=== PATIENT | female | born 1990 | race Caucasian/White ===

== ENCOUNTER 2019-04-08 16:25 | Emergency (ER) | payer OTHER ==
--- NOTE | 2019-04-08 19:40 | ED ---
Abdominal Pain HPI - General Chief Complaint: Abdominal Pain Stated Complaint: /cramping Time Seen by Provider: 04/08/19 19:06 Source: patient Mode of arrival: ambulatory Limitations: no limitations - History of Present Illness Initial Comments: Patient is a 28-year-old female presenting to emergency Department with complaints of abdominal cramping for the last 2 days. Patient is approximate 5 weeks and did call her DIRECTOR OF OCCUPATIONAL HEALTH, Dr. Peña today who recommended she come to the ER for evaluation. Patient denies any vaginal bleeding. This is her first . She denies any nausea, vomiting, fevers. She has no other complaints at this time. She has no other pertinent past medical history. Upon arrival to the ER vitals are stable. - Related Data Home Medications Medication Instructions Recorded Confirmed Cholecalciferol [Vitamin D3 (25 5,000 unit PO DAILY 04/08/19 04/08/19 Mcg = 1000 Iu)] Zpi-Hahl-[id number] Acid 1 cap PO DAILY 04/08/19 04/08/19 [-U Capsule (formulary)] Previous Rx's Medication Instructions Recorded Cephalexin [Keflex] 500 mg PO BID 5 Days #10 cap 04/08/19 Allergies Allergy/AdvReac Type Severity Reaction Status Date / Time No Known Allergies Allergy Verified 04/08/19 20:41 Review of Systems ROS Statement: Those systems with pertinent positive or pertinent negative responses have been documented in the HPI. ROS Other: All systems not noted in ROS Statement are negative. Past Medical History Past Medical History: CVA/TIA Additional Past Medical History / Comment(s): cva 2009 History of Any Multi-Drug Resistant Organisms: None Reported Past Surgical History: Adenoidectomy, Tonsillectomy Past Psychological History: No Psychological Hx Reported Smoking Status: Never smoker Past Alcohol Use History: None Reported Past Drug Use History: None Reported General Exam - General Exam Comments Initial Comments: GENERAL: Well-appearing, well-nourished and in no acute distress. HEAD: Atraumatic, normocephalic. EYES: Pupils equal round and reactive to light, extraocular movements intact, sclera anicteric, conjunctiva are normal. ENT: TMs normal, nares patent, oropharynx clear without exudates. Moist mucous membranes. NECK: Normal range of motion, supple without lymphadenopathy or JVD. LUNGS: Breath sounds clear to auscultation bilaterally and equal. No wheezes rales or rhonchi. HEART: Regular rate and rhythm without murmurs, rubs or gallops. ABDOMEN: Soft, nontender, normoactive bowel sounds. No guarding, no rebound. No masses appreciated. EXTREMITIES: Normal range of motion, no pitting or edema. No clubbing or cyanosis. NEUROLOGICAL: Normal speech, normal gait. PSYCH: Normal mood, normal affect. SKIN: Warm, Dry, normal turgor, no rashes or lesions noted. Limitations: no limitations External exam: Present: normal external exam Speculum exam: Present: normal speculum exam. Absent: cervical discharge, vaginal bleeding, foreign body By manual exam: Present: normal by manual exam Course Vital Signs 04/08/19 04/08/19 16:36 22:05 Temperature 98.3 F 97.7 F Pulse Rate 74 90 Respiratory 19 18 Rate Blood Pressure 136/74 124/70 O2 Sat by Pulse 100 100 Oximetry Medical Decision Making - Medical Decision Making Patient is a 28-year-old female here for abdominal cramping 2 days. She is proximal to 5 weeks , first . No vaginal bleeding. Patient's exam is unremarkable. Vaginal exam is normal. Ultrasound reveals evidence of small intrauterine gestational sac. Recommend follow-up in 2 weeks to confirm a living fetus. No evidence for ectopic . Labs showed no acute abnormalities. HCG Quant is almost 6000. Urine does show moderate amount of bacteria. Patient denies any urinary type symptoms. Patient will be placed on Keflex for asymptomatic bacteremia. She is in agreement with this plan of care. Patient will follow up with her DIRECTOR OF OCCUPATIONAL HEALTH, Dr. Peña. She is stable for discharge at this time. Return parameters were discussed with the patient she verbalized understanding. - Lab Data Result diagrams: 04/08/19 20:20 04/08/19 20:20 Lab Results 04/08/19 04/08/19 04/08/19 Range/Units 20:20 20:20 20:20 WBC 14.4 H (3.8-10.6) k/uL RBC 4.26 (3.80-5.40) m/uL Hgb 13.4 (11.4-16.0) gm/dL Hct 40.4 (34.0-46.0) % MCV 94.9 (80.0-100.0) fL MCH 31.5 (25.0-35.0) pg MCHC 33.2 (31.0-37.0) g/dL RDW 12.3 (11.5-15.5) % Plt Count 190 (150-450) k/uL Neutrophils % 59 % Lymphocytes % 31 % Monocytes % 5 % Eosinophils % 2 % Basophils % 1 % Neutrophils # 8.6 H (1.3-7.7) k/uL Lymphocytes # 4.5 (1.0-4.8) k/uL Monocytes # 0.7 (0-1.0) k/uL Eosinophils # 0.3 (0-0.7) k/uL Basophils # 0.1 (0-0.2) k/uL Sodium (137-145) mmol/L Potassium (3.5-5.1) mmol/L Chloride (98-107) mmol/L Carbon Dioxide (22-30) mmol/L Anion Gap mmol/L BUN (7-17) mg/dL Creatinine (0.52-1.04) mg/dL Est GFR (CKD-EPI)AfAm (>60 ml/min/1.73 sqM) Est GFR (CKD-EPI)NonAf (>60 ml/min/1.73 sqM) Glucose (74-99) mg/dL Calcium (8.4-10.2) mg/dL Total Bilirubin (0.2-1.3) mg/dL AST (14-36) U/L ALT (4-34) U/L Alkaline Phosphatase (38-126) U/L Total Protein (6.3-8.2) g/dL Albumin (3.5-5.0) g/dL HCG, Quant mIU/mL Urine Color Yellow Urine Appearance Cloudy H (Clear) Urine pH 5.5 (5.0-8.0) Ur Specific [place] 1.030 (1.001-1.035) Urine Protein Trace H (Negative) Urine Glucose (UA) Negative (Negative) Urine Ketones Negative (Negative) Urine Blood Negative (Negative) Urine Nitrite Negative (Negative) Urine Bilirubin Negative (Negative) Urine Urobilinogen <2.0 (<2.0) mg/dL Ur Leukocyte Esterase Negative (Negative) Urine RBC 4 (0-5) /hpf Urine WBC 3 (0-5) /hpf Ur Squamous Epith Cells 2 (0-4) /hpf Calcium Oxalate Crystal Rare H (None) /hpf Urine Bacteria Moderate H (None) /hpf Urine Mucus Few H (None) /hpf Blood Type AB Positive Blood Type Recheck AB Pos Bld Type Recheck Status No 04/08/19 Range/Units 20:20 WBC (3.8-10.6) k/uL RBC (3.80-5.40) m/uL Hgb (11.4-16.0) gm/dL Hct (34.0-46.0) % MCV (80.0-100.0) fL MCH (25.0-35.0) pg MCHC (31.0-37.0) g/dL RDW (11.5-15.5) % Plt Count (150-450) k/uL Neutrophils % % Lymphocytes % % Monocytes % % Eosinophils % % Basophils % % Neutrophils # (1.3-7.7) k/uL Lymphocytes # (1.0-4.8) k/uL Monocytes # (0-1.0) k/uL Eosinophils # (0-0.7) k/uL Basophils # (0-0.2) k/uL Sodium 137 (137-145) mmol/L Potassium 4.0 (3.5-5.1) mmol/L Chloride 106 (98-107) mmol/L Carbon Dioxide 21 L (22-30) mmol/L Anion Gap 10 mmol/L BUN 12 (7-17) mg/dL Creatinine 0.54 (0.52-1.04) mg/dL Est GFR (CKD-EPI)AfAm >90 (>60 ml/min/1.73 sqM) Est GFR (CKD-EPI)NonAf >90 (>60 ml/min/1.73 sqM) Glucose 94 (74-99) mg/dL Calcium 9.2 (8.4-10.2) mg/dL Total Bilirubin 0.6 (0.2-1.3) mg/dL AST 25 (14-36) U/L ALT 16 (4-34) U/L Alkaline Phosphatase 48 (38-126) U/L Total Protein 7.3 (6.3-8.2) g/dL Albumin 4.5 (3.5-5.0) g/dL HCG, Quant 5956.7 mIU/mL Urine Color Urine Appearance (Clear) Urine pH (5.0-8.0) Ur Specific [place] (1.001-1.035) Urine Protein (Negative) Urine Glucose (UA) (Negative) Urine Ketones (Negative) Urine Blood (Negative) Urine Nitrite (Negative) Urine Bilirubin (Negative) Urine Urobilinogen (<2.0) mg/dL Ur Leukocyte Esterase (Negative) Urine RBC (0-5) /hpf Urine WBC (0-5) /hpf Ur Squamous Epith Cells (0-4) /hpf Calcium Oxalate Crystal (None) /hpf Urine Bacteria (None) /hpf Urine Mucus (None) /hpf Blood Type Blood Type Recheck Bld Type Recheck Status Disposition Clinical Impression: Abdominal cramping, bilateral lower quadrant, Disposition: HOME SELF-CARE Condition: Stable Instructions (If sedation given, give patient instructions): Abdominal Pain in (ED) Additional Instructions: Please return to the Emergency Department if symptoms worsen or any other concerns. Follow-up with Dr. Peña. Take antibiotic as prescribed. Prescriptions: Cephalexin [Keflex] 500 mg PO BID 5 Days #10 cap Is patient prescribed a controlled substance at d/c from ED?: No Referrals: Ashu Broussard MD [Primary Care Provider] - 1-2 days Irene Peña DO [Doctor of Osteopathic Medicine] - 1-2 days
[2019-04-08 20:39] LABS: Basophils # (A) 0.1 k/uL (0-0.2); Basophils % (A) 1 %; Eosinophils # (A) 0.3 k/uL (0-0.7); Eosinophils % (A) 2 %; HCT 40.4 % (34.0-46.0); HGB 13.4 gm/dL (11.4-16.0); Lymphocytes # (A) 4.5 k/uL (1.0-4.8); Lymphocytes % (A) 31 %; MCH 31.5 pg (25.0-35.0); MCHC 33.2 g/dL (31.0-37.0); MCV 94.9 fL (80.0-100.0); Mean Platelet Volume 9.2; Monocytes # (A) 0.7 k/uL (0-1.0); Monocytes % (A) 5 %; Neutrophils # (A) 8.6 k/uL (1.3-7.7); Neutrophils % (A) 59 %; Platelet Count 190 k/uL (150-450); RBC 4.26 m/uL (3.80-5.40); RDW 12.3 % (11.5-15.5); WBC 14.4 k/uL (3.8-10.6)
[2019-04-08 20:49] LABS: ALT 16 U/L (4-34); AST 25 U/L (14-36); African American GFR (CKD) >90 (>60 ml/min/1.73 sqM); Albumin 4.5 g/dL (3.5-5.0); Alkaline Phosphatase 48 U/L (38-126); Anion Gap 10 mmol/L; Blood Urea Nitrogen 12 mg/dL (7-17); Calcium 9.2 mg/dL (8.4-10.2); Carbon Dioxide 21 mmol/L (22-30); Chloride 106 mmol/L (98-107); Glucose 94 mg/dL (74-99); Non-African American GFR(CKD) >90 (>60 ml/min/1.73 sqM); Sodium 137 mmol/L (137-145); Total Bilirubin 0.6 mg/dL (0.2-1.3); Total Protein 7.3 g/dL (6.3-8.2)
[2019-04-08 20:54] LABS: Appearance,Urine Cloudy (Clear); Bacteria,Urine Moderate /hpf; Bilirubin,Urine Negative (Negative); Blood,Urine Negative (Negative); Calcium Oxalate Crystals,Urine Rare /hpf; Color,Urine Yellow; Glucose,Urine (UA) Negative (Negative); Ketones,Urine Negative (Negative); Leukocyte Esterase,Urine Negative (Negative); Mucus,Urine Few /hpf; Nitrite,Urine Negative (Negative); PH, Urine 5.5 (5.0-8.0); Protein,Urine Trace (Negative); RBC,Urine 4 /hpf (0-5); Squamous Epithelial Cell,Urine 2 /hpf (0-4); Urobilinogen,Urine <2.0 mg/dL (<2.0); WBC,Urine 3 /hpf (0-5)
[2019-04-08 21:06] LABS: HCG,Quantitative Serum 5956.7 mIU/mL
--- NOTE | 2019-04-08 21:42 | US ---
EXAMINATION TYPE: Transabdominal DATE OF EXAM: 04/08/2019 9:22 PM COMPARISON: US 2009 CLINICAL HISTORY: cramping. Cramping x 3 days. Hx ovarian cysts. . EXAM PERFORMED: Transvaginal (TV) and Transabdominal (TA) EXAM MEASUREMENTS: GESTATIONAL AGE / DATING Physician Established: Not yet established. Dates by LMP: (4 weeks/4 days) EDC: 12/12/2019 Dates by First Scan: This is first scan Dates by Current Scan for: Possible gestational sac seen only, measures out of range. MATERNAL ANATOMY Uterus: 8.2 x 5.8 x 4.8 cm. Retroverted. Complex area seen in cervix: 0.6 x 0.7 x 0.4 cm. Right Ovary: 3.3 x 2.4 x 1.8 cm. Appears to be posterior to the uterus. Left Ovary: 4.8 x 2.9 x 2.2 cm. Measures enlarged. Anechoic area seen: 2.2 x 2.8 x 1.4 cm. Complex ar ea seen: 1.6 x 2.1 x 1.1 cm. Post CDS / Adnexa: Appear to be wnl. Presence of free fluid: Not seen. Presence of corpus luteal cyst: Complex area seen left ovary as mentioned above: 1.6 x 2.1 x 1.1 cm. Presence of subchorionic bleed: Slightly hypoechoic area seen Inferior to the gestational sac: 1.2 x 1.4 x 1.0 cm. GESTATION / SURVEY MSD: 0.92 cm. (Measures OOR. IUP: Possible gestational sac seen at this time. Date of LMP: 03/07/2019 Beta HcG (if available): Not available. IMPRESSION: There is evidence of small intrauterine gestational sac. Follow-up recommended in 14 days to confirm a living fetus. I do not see evidence for ectopic .
[2019-04-08 22:17] VITALS: BP 124/70; PULSE 90; RESP 18; TEMP 97.7
== END 2019-04-08 22:05 | disposition home or self-care (01) ==
LOC: EC 16:25
DX: O99.89 Other specified diseases and conditions complicating pregnancy, childbirth and the puerperium (principal); R10.31 Right lower quadrant pain; R10.32 Left lower quadrant pain; Z86.73 Personal history of transient ischemic attack (TIA), and cerebral infarction without residual deficits; Z3A.01 Less than 8 weeks gestation of pregnancy
CPT/HCPCS: 36415; 76801; 76817; 80053; 81001; 84702; 85025; 86900; 86901; 99284

== ENCOUNTER → 2019-07-18 | Outpatient (CLI) | payer OTHER ==
--- NOTE | 2019-07-19 07:26 | ECHOF ---
Referral Reason:CVA MEASUREMENTS -------- HEIGHT: 165.1 cm WEIGHT: 78.5 kg BP: RVIDd: 3.4 cm (< 3.3) IVSd: 1.0 cm (0.6 - 1.1) LVIDd: 4.2 cm (3.9 - 5.3) LVPWd: 1.1 cm (0.6 - 1.1) IVSs: 1.6 cm LVIDs: 2.7 cm LVPWs: 1.7 cm LAESV Index (A-L): 35.39 ml/m Ao Diam: 2.9 cm (2.0 - 3.7) AV Cusp: 1.7 cm (1.5 - 2.6) LA Diam: 2.5 cm (2.7 - 3.8) MV EXCURSION: 27.939 mm (> 18.000) MV EF SLOPE: 111 mm/s (70 - 150) EPSS: 0.6 cm MV E Shailesh: 1.15 m/s MV DecT: 268 ms MV A Shailesh: 0.50 m/s MV E/A Ratio: 2.28 RAP: 5.00 mmHg RVSP: 34.42 mmHg FINDINGS -------- Sinus rhythm. This was a technically adequate study. The left ventricular size is normal. Left ventricular wall thickness is normal. There is normal g lobal left ventricular contractility. Overall left ventricular systolic function is normal with, an EF between 55 - 60 %. The diastolic filling pattern is normal for the age of the patient 9.23. The right ventricle is mildly enlarged. LA is moderately dilated 34-39 ml/m2 The right atrial size is normal. Interatrial and interventricular septum intact. The aortic valve is trileaflet and appears structurally normal. There is no evidence of aortic regu rgitation. There is no evidence of aortic stenosis. Mild mitral regurgitation is present. Mild tricuspid regurgitation present. There is borderline pulmonary hypertension. The right ventr icular systolic pressure, as measured by Doppler, is 34.42mmHg. There is no pulmonic regurgitation present. The aortic root size is normal. Normal inferior vena cava with normal inspiratory collapse consistent with estimated right atrial pre ssure of 5 mmHg. There is no pericardial effusion. CONCLUSIONS -------- 1. Sinus rhythm. 2. This was a technically adequate study. 3. The left ventricular size is normal. 4. Left ventricular wall thickness is normal. 5. There is normal global left ventricular contractility. 6. Overall left ventricular systolic function is normal with, an EF between 55 - 60 %. 7. The diastolic filling pattern is normal for the age of the patient 9.23 8. The right ventricle is mildly enlarged. 9. LA is moderately dilated 34-39 ml/m2 10. The right atrial size is normal. 11. Interatrial and interventricular septum intact. 12. The aortic valve is trileaflet and appears structurally normal. 13. There is no evidence of aortic regurgitation. 14. There is no evidence of aortic stenosis. 15. Mild mitral regurgitation is present. 16. Mild tricuspid regurgitation present. 17. There is borderline pulmonary hypertension. 18. The right ventricular systolic pressure, as measured by Doppler, is 34.42mmHg. 19. There is no pulmonic regurgitation present. 20. The aortic root size is normal. 21. Normal inferior vena cava with normal inspiratory collapse consistent with estimated right atrial pressure of 5 mmHg. 22. There is no pericardial effusion. FOREIGN STUDENT ADVISER: Joselyn Grimaldo RDCS
== END | disposition home or self-care (01) ==
LOC: RADECHMAIN 12:53
PROVIDERS: ATTEND Obstetrics & Gynecology Obstetrics
DX: I08.1 Rheumatic disorders of both mitral and tricuspid valves (principal); I27.20 Pulmonary hypertension, unspecified
CPT/HCPCS: 93306

== ENCOUNTER 2019-10-17 07:56 | Outpatient (CLI) | payer OTHER ==
[2019-10-17 09:26] LABS: Appearance,Urine Clear (Clear); Bilirubin,Urine Negative (Negative); Blood,Urine Negative (Negative); Color,Urine Light Yellow; Glucose,Urine (UA) Negative (Negative); Ketones,Urine Negative (Negative); Leukocyte Esterase,Urine Negative (Negative); Nitrite,Urine Negative (Negative); Protein,Urine Negative (Negative); Specific Gravity,Urine 1.005 (1.001-1.035); Urobilinogen,Urine <2.0 mg/dL (<2.0)
[2019-10-17] MEDS ORDERED: BETAMET ACET-BETAMETH SOD PHOS 6 MG/ML MDV IM SCH (10:00)
--- NOTE | 2019-10-17 10:07 | US ---
EXAMINATION TYPE: US OB >= 14 wk fetus DATE OF EXAM: 10/17/2019 COMPARISON: US CLINICAL HISTORY: vaginal bleedingtoday; ; patient denies exertional activities TECHNIQUE: Transabdominal (TA) GESTATIONAL AGE / DATING Physician Established: (31 weeks/6 days) EDC: 12/13/2019 Dates by LMP: (32 weeks/ 0days) EDC: 12/12/2019 Dates by First Scan: (32 weeks/0 days) EDC: 12/12/2019 Dates by Current Scan: (33 weeks/5 days) EDC: 11/30/2019 Beta HCG (if available): NA SURVEY IUP: Single, Live IUP PLACENTA: fundal posterior PREVIA: no PATRICIA: 13.0 cm Normal CERVICAL LENGTH (transabdominal: norm > 3.0cm): 3.27 cm BIOMETRY PRESENTATION: Vertex LIE: Longitudinal BPD: 9.0 cm 36 weeks / 3 days HC: 31.4 cm 35 weeks / 2 days AC: 29.0 cm 33 weeks / 0 days FL: 6.4 cm 33 weeks / 0 days ESTIMATED WEIGHT IN GRAMS: 2213 grams ESTIMATED WEIGHT IN LBS/OZ: 4 lbs. 14 oz. WEIGHT PERCENTAGE BASED ON ESTABLISHED DATES: 88.2% HC/AC: 1.08 Normal FL/AC: 22.02 Normal HEART RATE: 132 bpm RHYTHM: Normal Single, live IUP, 33 weeks/5 days, EDC: 11/30/2019, [id number]. Tech findings reported to Dr. Peña at exam's end. JLobito IMPRESSION: Single viable uterine .
[2019-10-17 11:13] VITALS: BP 135/76; PULSE 83; RESP 18; TEMP 98.1
--- NOTE | 2019-10-24 09:26 | P.MSEPDOC ---
Presenting Problems - Arrival Data Date of Arrival on Unit: 10/17/19 Time of Arrival on Unit: 07:56 Mode of Transport: Ambulatory - Complaint OB-Reason for Admission/Chief Complaint: Benigno Bleeding Comment: pt presented to triage with vaginal bleeding less than quarter size in her underware, and some bright red bleed on toilet paper this am at 0700 Medical History - Information : 1 Para: 0 Term: 0 : 0 Abortions: Spontaneous or Elective: 0 Number of Living Children: 0 - Gestational Age Gestational Age by MARCIA (wks/days): 31 Weeks and 6 Days - History Complications: Other Comment: pt on labetolol during this also a baby asprin as she had a stroke in the past Review of Systems - Review of Systems Constitutional: No problems Breast: No problems ENT: No problems Cardiovascular: No problems Respiratory: No problems Gastrointestinal: No problems Genitourinary: No problems Musculoskeletal: No problems Neurological: No problems Skin: No problems Vital Signs - Temperature Temperature: 98.1 F Temperature Source: Temporal Artery Scan - Pulse Right Brachial Pulse Rate: 83 Pulse Assessment Method: Automatic Cuff - Respirations Respiratory Rate: 18 Oxygen Delivery Method: Room Air O2 Sat by Pulse Oximetry: 99 - Blood Pressure Right Arm Blood Pressure: 135/76 Blood Pressure Mean: 95 Blood Pressure Source: Automatic Cuff Medical Screen Scoring (Pre) - Cervical Exam Dilation: 0 cm = 0 Effacement: Exam Deferred Membranes: Intact - Uterine Contractions Frequency: > 5 minutes apart = 1 Duration: N/A Intensity: N/A - Maternal Vital Signs Maternal Temperature: N/A Maternal Blood Pressure: N/A Signs of Preeclampsia: N/A Maternal Respirations: N/A - Maternal Trauma Maternal Trauma: N/A - Assessment - Baby A Baseline FHR: 120 Heart Rate - NICHD Category: Category I (Normal) = 0 NST: Reactive Position: N/A Station: N/A - Total Score - Baby A Total Score - Baby A: 1 - Total Score - Baby B Total Score - Baby B: 1 - Total Score - Baby C Total Score - Baby C: 1 - Level of Risk - Baby A Level of Risk - Baby A: Low (0-5) - Level of Risk - Baby B Level of Risk - Baby B: Low (0-5) - Level of Risk - Baby C Level of Risk - Baby C: Low (0-5) Physician Notification (Pre) - Physician Notified Physician Notified Date: 10/17/19 Physician Notified Time: 09:44 New Order Received: Yes - Notification Comment Comment: complete bedside ultrasound was done, ua sent, and speculum and cervical exam done and reported to Dr. Peña, dose of steriods given, orders for discharge given, pt to be on pelvic rest, return tomorrow for 2nd dose of steriod injections, pt to call office to make a follow up appt to be seen early next week Disposition - Disposition OB Disposition: Triage, Discharge to home, Written follow up instructions reviewed Discharge Date: 10/17/19 Discharge Time: 10:15 I agree with the RN Medical Screening Exam: Yes Risk & Benefit of care provided described in d/c instruction: Yes Diagnosis: OTHER SPECIFIED COMPLICATIONS OF LABOR AND DELIVERY
== END 2019-10-17 10:15 | disposition home or self-care (01) ==
LOC: FBPOP 07:56
PROVIDERS: ATTEND Obstetrics & Gynecology Obstetrics
DX: O75.89 Other specified complications of labor and delivery (principal); Z3A.31 31 weeks gestation of pregnancy
CPT/HCPCS: 59025; 99214; 96372; 81003; 76805; J0702

== ENCOUNTER 2019-10-18 09:57 | Outpatient (CLI) | payer OTHER ==
[2019-10-18] MEDS ORDERED: BETAMET ACET-BETAMETH SOD PHOS 6 MG/ML MDV IM SCH (10:15)
[2019-10-18 10:46] VITALS: BP 119/58; PULSE 68; RESP 16; TEMP 98.1
--- NOTE | 2019-10-18 11:53 | P.MSEPDOC ---
Presenting Problems - Arrival Data Date of Arrival on Unit: 10/18/19 Time of Arrival on Unit: 10:01 Mode of Transport: Ambulatory - Complaint OB-Reason for Admission/Chief Complaint: Celestone Injection Comment: 2nd injection. nst done. reactive. no active bleeding or contx. Medical History - Information : 1 Para: 0 Term: 0 : 0 Abortions: Spontaneous or Elective: 0 Number of Living Children: 0 - Gestational Age Gestational Age by MARCIA (wks/days): 32 Weeks and 0 Days - History Comment: here yesterday with spotting and contx. Review of Systems - Review of Systems Constitutional: No problems Breast: No problems ENT: No problems Cardiovascular: No problems Respiratory: No problems Gastrointestinal: No problems Genitourinary: No problems Musculoskeletal: No problems Neurological: No problems Skin: No problems Vital Signs - Temperature Temperature: 98.1 F Temperature Source: Temporal Artery Scan - Pulse Right Radial Pulse Rate: 68 Pulse Assessment Method: Automatic Cuff - Respirations Respiratory Rate: 16 Oxygen Delivery Method: Room Air O2 Sat by Pulse Oximetry: 99 - Blood Pressure Right Arm Blood Pressure: 119/58 Blood Pressure Mean: 78 Blood Pressure Source: Automatic Cuff Medical Screen Scoring (Pre) - Cervical Exam Dilation: Exam Deferred - Uterine Contractions Frequency: N/A Duration: N/A Intensity: N/A - Maternal Vital Signs Maternal Temperature: N/A Signs of Preeclampsia: N/A Maternal Respirations: N/A - Maternal Trauma Maternal Trauma: N/A - Assessment - Baby A Baseline FHR: 120 Heart Rate - NICHD Category: Category I (Normal) = 0 - Total Score - Baby A Total Score - Baby A: 0 - Total Score - Baby B Total Score - Baby B: 0 - Total Score - Baby C Total Score - Baby C: 0 - Level of Risk - Baby A Level of Risk - Baby A: Low (0-5) - Level of Risk - Baby B Level of Risk - Baby B: Low (0-5) - Level of Risk - Baby C Level of Risk - Baby C: Low (0-5) Physician Notification (Pre) - Physician Notified New Order Received: No - Notification Comment Comment: orders for repeat from dr sarabia/ discharge report today to dr rivera. Disposition - Disposition OB Disposition: Triage, Discharge to home, Written follow up instructions reviewed Discharge Date: 10/18/19 Discharge Time: 10:41 I agree with the RN Medical Screening Exam: Yes Risk & Benefit of care provided described in d/c instruction: Yes Diagnosis: RELATED CONDITIONS, UNSPECIFIED, THIRD TRIMESTER
== END 2019-10-18 10:41 | disposition home or self-care (01) ==
LOC: FBPOP 09:57
PROVIDERS: ATTEND Obstetrics & Gynecology
DX: O26.93 Pregnancy related conditions, unspecified, third trimester (principal); Z3A.32 32 weeks gestation of pregnancy
CPT/HCPCS: 99213; 96372; J0702

== ENCOUNTER 2019-10-27 08:16 | Outpatient (CLI) | payer OTHER ==
[2019-10-27] MEDS ORDERED: LACTATED RINGERS 1,000 ML IV SCH (08:57)
[2019-10-27 09:18] VITALS: PULSE 87; TEMP 97.2
[2019-10-27 11:23] VITALS: BP 117/71; RESP 16
--- NOTE | 2019-12-03 09:35 | P.MSEPDOC ---
Presenting Problems - Arrival Data Date of Arrival on Unit: 10/27/19 Time of Arrival on Unit: 09:10 Mode of Transport: Ambulatory - Complaint OB-Reason for Admission/Chief Complaint: Vaginal Bleeding Medical History - Information : 1 Para: 0 Term: 0 : 0 Abortions: Spontaneous or Elective: 0 Number of Living Children: 0 - Gestational Age Gestational Age by MARCIA (wks/days): 33 Weeks and 3 Days Review of Systems - Review of Systems Constitutional: No problems Breast: No problems ENT: No problems Cardiovascular: No problems Respiratory: No problems Gastrointestinal: No problems Genitourinary: No problems Musculoskeletal: No problems Neurological: No problems Skin: No problems Vital Signs - Temperature Temperature: 97.2 F Temperature Source: Temporal Artery Scan - Pulse Right Pulse Rate: 87 Pulse Assessment Method: Automatic Cuff - Respirations Respiratory Rate: 16 Oxygen Delivery Method: Room Air O2 Sat by Pulse Oximetry: 99 - Blood Pressure Right Arm Blood Pressure: 117/71 Blood Pressure Mean: 86 Blood Pressure Source: Automatic Cuff Medical Screen Scoring (Pre) - Cervical Exam Dilation: Exam Deferred - Uterine Contractions Frequency: N/A Duration: N/A Intensity: N/A - Maternal Vital Signs Maternal Temperature: N/A Maternal Blood Pressure: N/A Signs of Preeclampsia: N/A Maternal Respirations: N/A - Maternal Trauma Maternal Trauma: N/A - Assessment - Baby A Baseline FHR: 130 Heart Rate - NICHD Category: Category I (Normal) = 0 NST: Reactive Position: N/A - Total Score - Baby A Total Score - Baby A: 0 - Total Score - Baby B Total Score - Baby B: 0 - Total Score - Baby C Total Score - Baby C: 0 - Level of Risk - Baby A Level of Risk - Baby A: Low (0-5) - Level of Risk - Baby B Level of Risk - Baby B: Low (0-5) - Level of Risk - Baby C Level of Risk - Baby C: Low (0-5) Physician Notification (Pre) - Physician Notified Physician Notified Date: 10/27/19 Physician Notified Time: 10:30 New Order Received: Yes - Notification Comment Comment: orders on chart. in to see at bedside Disposition - Disposition OB Disposition: Discharge to home Discharge Date: 10/27/19 Discharge Time: 11:10 I agree with the RN Medical Screening Exam: Yes Risk & Benefit of care provided described in d/c instruction: Yes Diagnosis: FALSE LABOR BEFORE 37 COMPLETED WEEKS OF GEST, THIRD TRI
== END 2019-10-27 11:10 | disposition home or self-care (01) ==
LOC: FBPOP 08:16
PROVIDERS: ATTEND Obstetrics & Gynecology Obstetrics
DX: O47.03 False labor before 37 completed weeks of gestation, third trimester (principal); Z3A.33 33 weeks gestation of pregnancy
CPT/HCPCS: 59025; 82731; 96360; 96361; 96366; 99213; 99214

== ENCOUNTER 2019-11-24 11:56 | Inpatient (IN) | payer OTHER ==
[2019-11-24] MEDS ORDERED: DINOPROSTONE 10 MG INSERT.ER VAGINAL ONE (17:32)
[2019-11-24 18:22] LABS: Basophils # (A) 0.1 k/uL (0-0.2); Basophils % (A) 0 %; Eosinophils # (A) 0.3 k/uL (0-0.7); Eosinophils % (A) 2 %; HCT 35.4 % (34.0-46.0); HGB 11.8 gm/dL (11.4-16.0); Lymphocytes # (A) 3.1 k/uL (1.0-4.8); Lymphocytes % (A) 18 %; MCH 31.1 pg (25.0-35.0); MCHC 33.5 g/dL (31.0-37.0); Mean Platelet Volume 9.1; Monocytes # (A) 0.7 k/uL (0-1.0); Monocytes % (A) 4 %; Neutrophils # (A) 13.1 k/uL (1.3-7.7); Neutrophils % (A) 76 %; Platelet Count 254 k/uL (150-450); RDW 13.2 % (11.5-15.5); WBC 17.3 k/uL (3.8-10.6)
--- NOTE | 2019-11-24 18:25 | P.HPOB ---
History of Present Illness H&P Date: 11/24/19 Chief Complaint: IUP @ 37 3/7, chronic HTN, h/o CVA This is a 29 yo @ 37 3/7 weeks that presents for induction of labor secondary to chronic HTN on labetalol. She does have a history of a stroke years ago, no reason was found in her workup. With a stated they felt it was her control pills. She did see maternal medicine in the beginning of and no recommendations other than baby aspirin were given to this patient. Patient has been followed closely with growth ultrasounds, testing since 32 weeks. Patient has been well-controlled on her labetalol. This evening she notes good movement, she denies contractions, vaginal bleeding or loss of fluid. bloodwork is revealing a blood type of AB pos, rubella immune, hepatitis B surface antigen negative, HIV neg, GDS noraml at 98, multiple preeclampsia labs are noted to be normal. Review of Systems Constitutional: Denies chills, Denies fatigue, Denies fever Ears, nose, mouth and throat: Denies headache Cardiovascular: Reports leg edema Respiratory: Denies dyspnea Gastrointestinal: Denies constipation, Denies diarrhea, Denies nausea, Denies vomiting Genitourinary: Reports Past Medical History Past Medical History: CVA/TIA Additional Past Medical History / Comment(s): cva 2009 History of Any Multi-Drug Resistant Organisms: None Reported Past Surgical History: Adenoidectomy, Tonsillectomy Past Anesthesia/Blood Transfusion Reactions: No Reported Reaction Past Psychological History: No Psychological Hx Reported Smoking Status: Never smoker Past Alcohol Use History: None Reported Past Drug Use History: None Reported - Past Family History Mother Family Medical History: Thyroid Disorder Medications and Allergies Home Medications Medication Instructions Recorded Confirmed Type Cholecalciferol [Vitamin D3 (25 5,000 unit PO DAILY 04/08/19 11/24/19 History Mcg = 1000 Iu)] Ubs-Nisl-Qqpos Acid 1 cap PO DAILY 04/08/19 11/24/19 History [-U Capsule (formulary)] Aspirin [Children's Aspirin] 81 mg PO DAILY 10/17/19 11/24/19 History Labetalol [Trandate] 100 mg PO BID 10/17/19 11/24/19 History Iron 18 tab PO DAILY 10/27/19 11/24/19 History Allergies Allergy/AdvReac Type Severity Reaction Status Date / Time cephalexin [From Keflex] Allergy Swelling Verified 11/24/19 17:12 Exam Osteopathic Statement: *. No significant issues noted on an osteopathic structural exam other than those noted in the History and Physical/Consult. Vital Signs Temp Pulse Resp BP Pulse Ox 11/24/19 17:15 97.6 F 80 15 137/75 98 Intake and Output 11/24/19 11/24/19 11/24/19 06:59 14:59 22:59 Other: Weight 89.494 kg Targeted physical exam is performed on this date in general this a well- nourished well-developed female in no acute distress, breathing is n oted to be nonlabored, heart has regular rate and rhythm, abdomen is gravid and appropriate for gestational age on cervical exam she is 2/50/-3. Cervidil was placed without difficulty. heart tones noted to be category 1 and she is davonte irregularly. Assessment and Plan (1) 37 weeks gestation of Current Visit: Yes Status: Acute Code(s): Z3A.37 - 37 WEEKS GESTATION OF SNOMED Code(s): 13122917 (2) Chronic benign essential hypertension in third trimester Current Visit: Yes Status: Acute Code(s): O10.013 - PRE-EXISTING ESSENTIAL HTN COMP , THIRD TRIMESTER SNOMED Code(s): 92200297 (3) H/O: CVA (cerebrovascular accident) Current Visit: Yes Status: Acute Code(s): Z86.73 - PRSNL HX OF TIA (TIA), AND CEREB INFRC W/O RESID DEFICITS SNOMED Code(s): 062555786 Plan: Patient is admitted to labor and delivery for planned Cervidil induction of labor. Options for analgesia discussed with this patient including Stadol and epidural. Patient states she will consider.
[2019-11-24 18:31] LABS: ALT 14 U/L (4-34); AST 27 U/L (14-36); African American GFR (CKD) >90 (>60 ml/min/1.73 sqM); Blood Urea Nitrogen 10 mg/dL (7-17); Non-African American GFR(CKD) >90 (>60 ml/min/1.73 sqM); Uric Acid 5.5 mg/dL (3.7-7.4)
[2019-11-24 20:37] LABS: Appearance,Urine Clear (Clear); Bacteria,Urine Moderate /hpf; Bilirubin,Urine Negative (Negative); Blood,Urine Small (Negative); Color,Urine Yellow; Glucose,Urine (UA) Negative (Negative); Ketones,Urine Negative (Negative); Leukocyte Esterase,Urine Large (Negative); Mucus,Urine Occasional /hpf; Nitrite,Urine Negative (Negative); Protein,Urine Negative (Negative); RBC,Urine 1 /hpf (0-5); Specific Gravity,Urine 1.013 (1.001-1.035); Squamous Epithelial Cell,Urine 1 /hpf (0-4); Urobilinogen,Urine <2.0 mg/dL (<2.0); WBC,Urine 2 /hpf (0-5)
[2019-11-24] MEDS: ZOLPIDEM 5 MG TAB PO SCH (21:37)
[2019-11-24] MEDS: LABETALOL 100 MG TAB PO SCH (21:37)
[2019-11-25] MEDS: BUTORPHANOL 1 MG/ML 1 ML VIAL IV PRN ×4 (00:06→08:15)
[2019-11-25] MEDS ORDERED: TERBUTALINE 1 MG/ML VIAL SQ PRN (02:05)
[2019-11-25] MEDS ORDERED: LIDOCAINE 0.5% (PF) 5 MG/ML (50 ML SDV) SQ PRN (02:05)
[2019-11-25] MEDS ORDERED: CARBOPROST TROMETHAMINE 250 MCG/ML 1 ML AMP IM PRN (02:05)
[2019-11-25] MEDS ORDERED: OXYTOCIN 10 UNIT/ML 1 ML VIAL IM PRN (02:05)
[2019-11-25] MEDS ORDERED: METHYLERGONOVINE 0.2 MG/ML 1 ML AMP IM PRN (02:05)
[2019-11-25] MEDS: LACTATED RINGERS 1,000 ML IV SCH ×5 (06:14→20:45)
[2019-11-25] MEDS: OXYTOCIN 30 UNITS/500 ML NS 30 UNIT in SALINE 1 500ML.BAG IV SCH (06:19)
[2019-11-25] MEDS: LABETALOL 100 MG TAB PO SCH (10:47)
[2019-11-25] MEDS ORDERED: CITRIC ACID-SODIUM CITRATE 15 ML CUP PO ONE (17:23)
[2019-11-25] MEDS ORDERED: ONDANSETRON 4 MG/2 ML VIAL IVP PRN (18:03)
[2019-11-25] MEDS ORDERED: METOCLOPRAMIDE 5 MG/ML 2 ML VIAL IVP PRN (18:03)
[2019-11-25] MEDS ORDERED: NALOXONE 0.4 MG/ML 1 ML VIAL IV PRN (18:03)
[2019-11-25] MEDS ORDERED: ACETAMINOPHEN TAB 325 MG TAB PO PRN (18:03)
[2019-11-25] MEDS ORDERED: diphenhydrAMINE 50 MG CAP PO PRN (18:03)
[2019-11-25] MEDS ORDERED: SIMETHICONE 80 MG CHEWABLE PO PRN (18:03)
[2019-11-25] MEDS ORDERED: diphenhydrAMINE 25 MG CAP PO PRN (18:03)
[2019-11-25] MEDS ORDERED: diphenhydrAMINE 50 MG/ML 1 ML VIAL IVP PRN ×2 (18:03)
[2019-11-25] MEDS ORDERED: ZOLPIDEM 5 MG TAB PO PRN (18:03)
[2019-11-25] MEDS ORDERED: OXYTOCIN 20 UNITS/1000 ML NS 1,000 ML IV SCH (18:15)
[2019-11-25] MEDS ORDERED: ACETAMINOPHEN IV (For NPO) 1,000 MG in EMPTY BAG 1 BAG IVPB ONE (18:15)
[2019-11-25] MEDS ORDERED: CLINDAMYCIN 900 MG in DEXTROSE 5% IN WATER 50 ML IVPB ONE ×2 (18:15)
[2019-11-25] MEDS ORDERED: GENTAMICIN 360 MG in SODIUM CHLORIDE 0.9% 100 ML IVPB ONE (18:15)
--- NOTE | 2019-11-25 19:26 | P.OP ---
Date of Procedure: 11/25/19 Preoperative Diagnosis: IUP at 37 and 4, chronic hypertension, history of CVA, arrest of dilation and descent Postoperative Diagnosis: Same Procedure(s) Performed: Primary low transverse section Anesthesia: epidural Surgeon: Irene Peña Repairer Finished Metal #1: Octavio Mascorro Estimated Blood Loss (ml): 500 IV fluids (ml): 1,000 Urine output (ml): 500 Pathology: none sent Condition: stable Disposition: PACU Indications for Procedure: This 29-year-old 1 para 0 presented to labor and delivery last night for plan Cervidil induction secondary to prior history of CVA, chronic hypertension on labetalol. Patient made good change through the night going from 2 cm to 4 in the morning. Patient made no further change throughout the day. Patient was uncomfortable and requested epidural placement which was placed by the anesthesia department without difficulty difficulty. Patient was noted to be 4 cm at 8 AM, no further change was noted throughout the day. Patient was counseled on primary secondary to arrest of descent and dilation. Operative Findings: Normal uterus tubes and ovaries were appreciated, posterior filmy bowel adhesions noted on the uterus. Male delivered at 1855, weight of 6 lbs. 7 oz. and Apgars of 9 and 9 at one and 5 minutes respectively. Description of Procedure: Patient was taken operating suite where epidural anesthesia was found be adequate. She was prepped and draped in normal sterile fashion in the dorsal supine position. A Pfannenstiel skin incision was made with the scalpel and carried through the underlying layer of fascia. The fascia was then incised in the midline and extended laterally. The superior aspect of the fascial incision was then grasped tevin clamps, elevated and underlying rectus muscle was dissected off sharply. The inferior aspect of the fascial incision was then grasped tevin clamps, elevated and underlying rectus muscles dissected off sharply. The rectus muscles were in the midline and the peritoneum was identified and entered. The bladder blade was then inserted into the pelvis. The vesicouterine peritoneum was identified and a bladder flap was then created using sharp and blunt dissection. The bladder blade was then reinserted into the pelvis. Hysterotomy incision was made with the scalpel, the was delivered in a vertex presentation. The umbilical cord was doubly clamped and cut and the was handed off to awaiting RN. The placenta was then delivered manually and the uterus was cleared of all clots and debris. The uterus was then delivered in the abdomen. The uterus was then closed with 0 Vicryl in a running locked fashion 2. Hemostasis was appreciated. He uterus was then returned to the abdomen and the gutters were cleared of all clots and debris. Uterine incision was inspected and found to be hemostatic. The peritoneum was loosely reapproximated. The fascia was then closed with 0 Vicryl in a running fashion from one lateral edge the other. The subcutaneous tissue was then irrigated and found to be hemostatic. This was then closed with 3-0 Vicryl in a running fashion. The skin was then closed with 4-0 Vicryl in a subarticular fashion. Steri-Strips and sterile dressings were applied. All counts were noted to be correct 2 at the end of the procedure. Patient and tolerated procedure well.
[2019-11-25] MEDS ORDERED: IBUPROFEN IV 800 MG in SODIUM CHLORIDE 0.9% 250 ML IV ONE (20:00)
[2019-11-25] MEDS: SENNOSIDES-DOCUSATE SODIUM 1 EACH TAB PO SCH (20:45)
[2019-11-25] MEDS ORDERED: HYDROcodone/APAP 7.5-325MG 1 EACH TAB PO ONE (22:02)
[2019-11-26] MEDS: ZOLPIDEM 5 MG TAB PO SCH ×2 (00:53→22:27)
[2019-11-26] MEDS: LABETALOL 100 MG TAB PO SCH ×3 (00:53→22:27)
[2019-11-26] MEDS: LACTATED RINGERS 1,000 ML IV SCH ×2 (03:56→05:23)
[2019-11-26] MEDS: OXYTOCIN 30 UNITS/500 ML NS 30 UNIT in SALINE 1 500ML.BAG IV SCH (03:57)
[2019-11-26] MEDS: ASPIRIN 81 MG PO SCH (08:25)
--- NOTE | 2019-11-26 08:28 | P.PNOBGPC ---
Subjective - Subjective Principal diagnosis: POD 1 LTCS arrest of dilation and descent Interval history: Patient did well overnight. She is ambulating and voiding without difficulty. She is tolerating a regular diet without nausea or vomiting. She states her pain is well-controlled. She is bottle feeding. She notes lochia to be minimal. Patient reports: Reports appetite normal, Reports voiding normally, Reports pain well controlled, Reports ambulating normally : doing well, bottle feeding Objective - Vital Signs Latest vital signs: Vital Signs Temp Pulse Resp BP Pulse Ox 11/26/19 08:00 98.6 F 73 16 113/75 11/26/19 03:45 98.4 F 72 16 124/62 95 11/26/19 00:00 98.6 F 68 16 120/58 98 11/25/19 21:55 75 16 121/67 98 11/25/19 20:55 60 16 121/59 99 11/25/19 20:25 71 16 124/63 98 11/25/19 20:10 75 16 128/66 98 11/25/19 19:55 77 16 138/68 98 11/25/19 19:40 88 16 133/61 11/25/19 19:25 98.1 F 93 16 109/53 98 11/25/19 17:49 98.9 F 53 L 16 123/64 Intake and Output 11/25/19 11/26/19 11/26/19 22:59 06:59 14:59 Output Total 1050 1100 Balance -1050 -1100 Output: Urine 1050 1100 Uretheral ([place]) 250 400 - Exam Extremities: Present: normal, edema Abdomen: Present: normal appearance, soft Incision: Present: normal, dry, intact Uterus: Present: normal, firm Assessment and Plan (1) 37 weeks gestation of Current Visit: Yes Status: Acute Code(s): Z3A.37 - 37 WEEKS GESTATION OF SNOMED Code(s): 36757415 (2) Chronic benign essential hypertension in third trimester Current Visit: Yes Status: Acute Code(s): O10.013 - PRE-EXISTING ESSENTIAL HTN COMP , THIRD TRIMESTER SNOMED Code(s): 42285709 (3) H/O: CVA (cerebrovascular accident) Current Visit: Yes Status: Acute Code(s): Z86.73 - PRSNL HX OF TIA (TIA), AND CEREB INFRC W/O RESID DEFICITS SNOMED Code(s): 987511174 (4) S/P section Current Visit: Yes Status: Acute Code(s): Z98.891 - HISTORY OF UTERINE SCAR FROM PREVIOUS SURGERY SNOMED Code(s): 896269287 Plan: This 29-year-old 1 now para 1 status post primary secondary to arrest of descent and dilation continues to do well postoperatively. On this postop day #1 she is involuting and voiding without difficulty and states she feels well. We'll plan to continue routine postoperative care and anticipate discharge home tomorrow.
[2019-11-26] MEDS: SENNOSIDES-DOCUSATE SODIUM 1 EACH TAB PO SCH ×2 (08:37→22:27)
[2019-11-26] MEDS: PRENATAL VIT-IRON-FOLIC ACID 1 EACH CAP PO SCH (08:37)
[2019-11-26 09:36] LABS: Basophils # (A) 0.1 k/uL (0-0.2); Basophils % (A) 0 %; Eosinophils # (A) 0.1 k/uL (0-0.7); Eosinophils % (A) 1 %; HCT 31.9 % (34.0-46.0); HGB 10.2 gm/dL (11.4-16.0); Lymphocytes # (A) 2.3 k/uL (1.0-4.8); Lymphocytes % (A) 14 %; MCH 30.4 pg (25.0-35.0); MCV 95.2 fL (80.0-100.0); Mean Platelet Volume 9.9; Monocytes # (A) 0.9 k/uL (0-1.0); Monocytes % (A) 5 %; Neutrophils # (A) 13.9 k/uL (1.3-7.7); Neutrophils % (A) 80 %; Platelet Count 220 k/uL (150-450); RBC 3.35 m/uL (3.80-5.40); RDW 13.3 % (11.5-15.5); WBC 17.4 k/uL (3.8-10.6)
[2019-11-26] MEDS: IBUPROFEN 600 MG TAB PO PRN ×2 (11:16→18:57)
[2019-11-26] MEDS: HYDROcodone/APAP 5-325MG 1 EACH TAB PO PRN ×2 (16:08→21:01)
[2019-11-27] MEDS: IBUPROFEN 600 MG TAB PO PRN ×2 (01:00→07:49)
[2019-11-27] MEDS: HYDROcodone/APAP 5-325MG 1 EACH TAB PO PRN (04:16)
[2019-11-27] MEDS: SENNOSIDES-DOCUSATE SODIUM 1 EACH TAB PO SCH (07:49)
[2019-11-27 08:41] VITALS: BP 112/69; PULSE 60; RESP 15; TEMP 98
--- NOTE | 2019-11-27 09:03 | P.DS ---
Providers Date of admission: 11/24/19 16:57 Expected date of discharge: 11/27/19 Attending physician: Irene Peña Primary care physician: Ashu Broussard - Discharge Diagnosis(es) (1) 37 weeks gestation of Current Visit: Yes Status: Acute (2) Chronic benign essential hypertension in third trimester Current Visit: Yes Status: Acute (3) H/O: CVA (cerebrovascular accident) Current Visit: Yes Status: Acute (4) S/P section Current Visit: Yes Status: Acute Hospital Course: This is a 29-year-old 1 para 0 that presented to labor and delivery at 37-3/7 weeks for elective induction of labor. Patient is a known history of chronic hypertension, and stroke earlier in life. Patient has been on labetalol 100 mg twice daily and doing well. Patient was admitted for Cervidil induction of labor. Patient made quick change throughout the evening going from 2 cm to 4 in the morning. Patient was significantly uncomfortable and requested epidural placement. Epidural was placed without difficulty by the anesthesia department. Patient made no change throughout the day from 8:30 AM until approximately 1730. Discussion with patient regarding primary secondary to arrest of labor was had with the patient. Patient elected primary secondary to arrest of first stage. Patient was taken back to the operating suite for primary . was performed without difficulty for further details on the please see operative report. Viable male infant was delivered at 1855, weight of 6 lbs. 7 oz. with Apgars of 9 and 9 at one and 5 minutes respect daily. Patient's course has been uneventful. On this day #2 she is ambulating and voiding without difficulty. She is tolerating a regular diet without nausea or vomiting. She states her pain is well-controlled and does wish discharge home. Patient Condition at Discharge: Good Plan - Discharge Summary New Discharge Prescriptions: No Action Pha-Rqzr-Iufls Acid [-U Capsule (formulary)] 1 cap PO DAILY Cholecalciferol [Vitamin D3 (25 Mcg = 1000 Iu)] 5,000 unit PO DAILY Labetalol [Trandate] 100 mg PO BID Aspirin [Children's Aspirin] 81 mg PO DAILY Iron 18 tab PO DAILY Discharge Medication List Cholecalciferol [Vitamin D3 (25 Mcg = 1000 Iu)] 5,000 unit PO DAILY 04/08/19 [History] Wld-Mihj-Nsksv Acid [-U Capsule (formulary)] 1 cap PO DAILY 04/08/19 [History] Aspirin [Children's Aspirin] 81 mg PO DAILY 10/17/19 [History] Labetalol [Trandate] 100 mg PO BID 10/17/19 [History] Iron 18 tab PO DAILY 10/27/19 [History] Follow up Appointment(s)/Referral(s): Irene Peña DO [Doctor of Osteopathic Medicine] - 1 Week Patient Instructions/Handouts: (DC), (GEN) Discharge Disposition: HOME SELF-CARE
[2019-11-27] MEDS: PRENATAL VIT-IRON-FOLIC ACID 1 EACH CAP PO SCH (11:33)
[2019-11-27] MEDS: ASPIRIN 81 MG PO SCH (11:33)
[2019-11-27] MEDS: LABETALOL 100 MG TAB PO SCH (11:33)
== END 2019-11-27 11:34 | disposition home or self-care (01) | DRG 788 ==
LOC: 4FBP 16:57
PROVIDERS: ADMIT Obstetrics & Gynecology Obstetrics; ATTEND Obstetrics & Gynecology Obstetrics
PROC: 3E0P7VZ Introduction of Hormone into Female Reproductive, Via Natural or Artificial Opening (ICD-10-PCS; 2019-11-24)
PROC: 00HU33Z Insertion of Infusion Device into Spinal Canal, Percutaneous Approach (ICD-10-PCS; 2019-11-25)
PROC: 3E0R3BZ Introduction of Anesthetic Agent into Spinal Canal, Percutaneous Approach (ICD-10-PCS; 2019-11-25)
PROC: 10D00Z1 Extraction of Products of Conception, Low, Open Approach (ICD-10-PCS; principal; 2019-11-25 18:40)
PROC: 3E033VJ Introduction of Other Hormone into Peripheral Vein, Percutaneous Approach (ICD-10-PCS; principal; 2019-11-25 18:40)
PROC: 10907ZC Drainage of Amniotic Fluid, Therapeutic from Products of Conception, Via Natural or Artificial Opening (ICD-10-PCS; principal; 2019-11-25 18:40)
DX: O10.02 Pre-existing essential hypertension complicating childbirth (principal); K66.0 Peritoneal adhesions (postprocedural) (postinfection); Z37.0 Single live birth; Z3A.37 37 weeks gestation of pregnancy; O62.1 Secondary uterine inertia; Z79.82 Long term (current) use of aspirin; Z79.899 Other long term (current) drug therapy; Z86.73 Personal history of transient ischemic attack (TIA), and cerebral infarction without residual deficits
CPT/HCPCS: 81001; 82565; 84450; 84460; 84520; 84550; 85025; 86850; 86900; 86901

== ENCOUNTER 2023-06-11 16:45 | Inpatient (IN) | payer OTHER ==
[2023-06-11 17:09] LABS: Appearance,Urine Clear (Clear); Bacteria,Urine Rare /hpf; Bilirubin,Urine Negative (Negative); Blood,Urine Negative (Negative); Color,Urine Light Yellow; Glucose,Urine (UA) Negative (Negative); Ketones,Urine Negative (Negative); Leukocyte Esterase,Urine Moderate (Negative); Mucus,Urine Rare /hpf; Nitrite,Urine Negative (Negative); Protein,Urine Negative (Negative); Specific Gravity,Urine 1.018 (1.001-1.035); Squamous Epithelial Cell,Urine <1 /hpf (0-4); Urobilinogen,Urine <2.0 mg/dL (<2.0); WBC,Urine 2 /hpf (0-5)
[2023-06-11 17:20] LABS: Basophils % (A) 0 %; Eosinophils # (A) 0.1 k/uL (0-0.7); Eosinophils % (A) 1 %; HCT 37.5 % (34.0-46.0); HGB 12.8 gm/dL (11.4-16.0); Lymphocytes # (A) 2.3 k/uL (1.0-4.8); Lymphocytes % (A) 20 %; MCH 31.9 pg (25.0-35.0); MCV 93.8 fL (80.0-100.0); Mean Platelet Volume 10.3; Monocytes # (A) 0.5 k/uL (0-1.0); Monocytes % (A) 4 %; Neutrophils # (A) 8.3 k/uL (1.3-7.7); Neutrophils % (A) 73 %; Platelet Count 181 k/uL (150-450); WBC 11.3 k/uL (3.8-10.6)
[2023-06-11 17:27] LABS: ALT 28 U/L (4-34); AST 44 U/L (14-36); African American GFR (CKD) >90 (>60 ml/min/1.73 sqM); Blood Urea Nitrogen 12 mg/dL (7-17); LDH 210 U/L (120-246); Non-African American GFR(CKD) >90 (>60 ml/min/1.73 sqM); Uric Acid 5.2 mg/dL (3.7-7.4)
[2023-06-11 17:29] LABS: Creatinine,Urine Random 97.4 mg/dL; Protein/Creatinine Ratio,Urine 0.082
[2023-06-11] MEDS ORDERED: miSOPROStoL 200 MCG TAB PO PRN (18:07)
[2023-06-11] MEDS ORDERED: TRANEXAMIC 1,000 MG/100ML-NACL 1,000 MG in EMPTY BAG 1 BAG IV PRN (18:07)
[2023-06-11] MEDS ORDERED: CARBOPROST TROMETHAMINE 250 MCG/ML 1 ML AMP IM PRN (18:07)
[2023-06-11] MEDS ORDERED: OXYTOCIN 10 UNIT/ML 1 ML VIAL IM PRN (18:07)
[2023-06-11] MEDS ORDERED: METHYLERGONOVINE 0.2 MG/ML 1 ML AMP IM PRN (18:07)
[2023-06-11] MEDS: CLINDAMYCIN 900 MG in DEXTROSE 5% IN WATER 50 ML IVPB ONE (18:21)
[2023-06-11 18:31] LABS: INR 0.9 (<1.2); Partial Thromboplastin Time 22.2 sec (22.0-30.0); Prothrombin Time 9.7 sec (10.0-12.5)
[2023-06-11] MEDS: CITRIC ACID-SODIUM CITRATE 15 ML CUP PO ONE (18:37)
[2023-06-11] MEDS: GENTAMICIN 370 MG in SODIUM CHLORIDE 0.9% 100 ML IVPB ONE (18:39)
[2023-06-11] MEDS: LACTATED RINGERS 1,000 ML IV ONE (18:40)
[2023-06-11] MEDS ORDERED: MORPHINE SULFATE (PF) 0.3 MG/0.3 ML SYR ONE (18:50)
[2023-06-11] MEDS ORDERED: fentaNYL (PF) 50 MCG/ML 2 ML AMP ONE (18:50)
[2023-06-11] MEDS ORDERED: ONDANSETRON 4 MG/2 ML VIAL ONE (18:50)
[2023-06-11] MEDS ORDERED: PHENYLEPHRINE-0.9% NACL SYG 1,000 MCG/10 ML SYRINGE ONE (18:50)
[2023-06-11] MEDS ORDERED: OXYTOCIN 30 UNITS/500 ML NS BAG IV ONE (18:50)
--- NOTE | 2023-06-11 19:44 | P.HPOB ---
History of Present Illness H&P Date: 06/11/23 Chief Complaint: BP at 38 weeks, elevated AST, chronic hypertension, ECHAVARRIA 32-year-old G2, P1 at 38 weeks of presented to the office today for routine visit. Patient admitted to a headache she has had for 2 days unrelieved by Tylenol. Patient does have a history of chronic hypertension has been taking her labetalol. Blood pressures she states have been good at home. She states "I just do not feel well today". She notes good movement. Notes an occasional contraction denies vaginal bleeding or loss of fluid. She does have a history of a prior and is requesting repeat section with tubal ligation. blood work this patient is a blood type of AB+, rubella status immune, hepatitis B surface engine negative, HIV negative, RPR is nonreactive, grew beta strep culture is negative. Review of Systems Constitutional: Denies chills, Denies fatigue, Denies fever Ears, nose, mouth and throat: Reports headache Cardiovascular: Reports leg edema Respiratory: Denies dyspnea Gastrointestinal: Denies nausea, Denies vomiting Genitourinary: Reports Past Medical History Past Medical History: CVA/TIA Additional Past Medical History / Comment(s): cva 2009 History of Any Multi-Drug Resistant Organisms: None Reported Past Surgical History: Adenoidectomy, Tonsillectomy Past Anesthesia/Blood Transfusion Reactions: No Reported Reaction Smoking Status: Never smoker - Past Family History Mother Family Medical History: Thyroid Disorder Medications and Allergies Home Medications Medication Instructions Recorded Confirmed Type Vtj-Fuyq-Obayk Acid 1 cap PO DAILY 04/08/19 06/11/23 History [-U Capsule (formulary)] Aspirin [Children's Aspirin] 81 mg PO DAILY 10/17/19 06/11/23 History Labetalol [Trandate] 100 mg PO BID 10/17/19 06/11/23 History Allergies Allergy/AdvReac Type Severity Reaction Status Date / Time cephalexin [From Keflex] Allergy Swelling Verified 06/11/23 16:50 Exam Osteopathic Statement: *. No significant issues noted on an osteopathic structural exam other than those noted in the History and Physical/Consult. Intake and Output 06/11/23 06/11/23 06/11/23 06:59 14:59 22:59 Other: Weight 105.233 kg Targeted physical exam is performed this date General is well-nourished well- developed female, edematous in nature. Facial swelling hand swelling lower extremity swelling is appreciated. Breathing is noted to be nonlabored, heart has a regular rate and rhythm, abdomen is gravid, cervical exam is deferre d, heart tones noted to be category 1 and she is not davonte. Results Result Diagrams: 06/11/23 16:54 06/11/23 16:54 Abnormal Lab Results - Last 24 Hours (Table) 06/11/23 06/11/23 06/11/23 Range/Units 16:54 16:54 17:00 WBC 11.3 H (3.8-10.6) k/uL Neutrophils # 8.3 H (1.3-7.7) k/uL PT (10.0-12.5) sec AST 44 H (14-36) U/L Ur Leukocyte Esterase Moderate H (Negative) Urine Bacteria Rare H (None) /hpf Urine Mucus Rare H (None) /hpf 06/11/23 Range/Units 18:10 WBC (3.8-10.6) k/uL Neutrophils # (1.3-7.7) k/uL PT 9.7 L (10.0-12.5) sec AST (14-36) U/L Ur Leukocyte Esterase (Negative) Urine Bacteria (None) /hpf Urine Mucus (None) /hpf Assessment and Plan (1) 38 weeks gestation of Current Visit: Yes Status: Acute Code(s): Z3A.38 - 38 WEEKS GESTATION OF SNOMED Code(s): 97458576 (2) Chronic hypertension Current Visit: Yes Status: Acute Code(s): I10 - ESSENTIAL (PRIMARY) HYPERTENSION SNOMED Code(s): 65692490 (3) H/O section Current Visit: Yes Status: Acute Code(s): Z98.891 - HISTORY OF UTERINE SCAR FROM PREVIOUS SURGERY SNOMED Code(s): 431091363 (4) Pre-eclampsia Current Visit: Yes Status: Acute Code(s): O14.90 - UNSPECIFIED PRE- ECLAMPSIA, UNSPECIFIED TRIMESTER SNOMED Code(s): 197245531 (5) H/O: CVA (cerebrovascular accident) Current Visit: No Status: Acute Code(s): Z86.73 - PRSNL HX OF TIA (TIA), AND CEREB INFRC W/O RESID DEFICITS SNOMED Code(s): 961433024 Plan: 32-year-old G2, P1001 at 38 0/7 weeks of that presented to the office today with complaints of headache unrelieved by Tylenol, known chronic h ypertension on labetalol. Patient has a prior history of preeclampsia with her last . On preeclampsia labs elevated AST was noted 10 points above normal. Given her increased swelling, headache unrelieved by Tylenol we will plan to proceed with repeat .
--- NOTE | 2023-06-11 19:44 | P.OP ---
Date of Procedure: 06/11/23 Preoperative Diagnosis: IUP at 30 weeks, elevated AST, headache, preeclampsia Postoperative Diagnosis: Same Procedure(s) Performed: Repeat section with bilateral tubal ligation Anesthesia: spinal Surgeon: Irene Peña Robotic Machine Tender Production #1: Radha Antonio Estimated Blood Loss (ml): 310 IV fluids (ml): 1,300 Urine output (ml): 200 Pathology: other (Placenta) Condition: stable Disposition: observation Indications for Procedure: 32-year-old G2, P1 at 38 weeks of that presented with complaints of headache unrelieved by Tylenol, on preeclampsia labs elevated AST. Increased lower extremity hands and facial swelling appreciated. Concerns for preeclampsia with impending help syndrome given elevated liver function. Will plan repeat section Operative Findings: Viable female delivered at 1912, weight of 6 pounds 14 ounces, Apgars of 8 and 9 at 1 and 5 minutes respectively. Obliterated cul-de-sac with bowel was appreciated upon extrusion of the uterus after delivery of the infant. Bilateral fallopian tubes were normal in nature. Description of Procedure: The patient was prepped and draped in the usual fashion after spinal anesthesia was administered by anesthesia department. A Pfannenstiel incision was made and extended of the abdominal cavity without difficulty. The bladder peritoneum was elevated and incised and reflected distally. A 2 cm incision was made in the transverse plane of the lower uterine segment to enter the uterus at which time clear fluid was noted. The incision was extended in both directions using the bandage scissors. The head was encountered within the field and delivered up and through the incision where the nose and mouth were thoroughly suctioned. Remainder of the was delivered onto the surgical field where the cord was doubly clamped, cut, and the infant was passed for resuscitative measures with weight and Apgars as noted above. A segment of cord was then doubly clamped, cut, and set aside should cord gases become necessary. The placenta was delivered manually, intact, and was grossly normal with a grossly normal three- vessel cord. The uterus was exteriorized and the interior cavity of the uterus swept of any remaining placental and membranous fragments with a laparotomy sponge. The margins of the incision were grasped with Allis clamps and the incision closed in 2 layers. First layer was a running locking layer of 0 Vicryl from margin to margin followed by a second layer of imbricating 0 Vicryl from margin to margin. Any small points of bleeding were then made hemostatic with the Bovie. Once hemostasis was achieved, the posterior cul-de-sac was noted to be obliterated with bowel adhesions, patient does have a history of endometriosis. The uterus was replaced within the abdominal cavity and the gutters swept of any remaining blood fluid or clot. The incision was again reexamined and hemostasis was noted to be excellent. Any small point of bleeding were made hemostatic with the Bovie. Once hemostasis was achieved the parietal peritoneum was loosely reapproximated. The layer of muscles were examined and made hemostatic with the Bovie. Attention was then turned to the fascia which was closed with a running stitch of 0 Vicryl from 1 lateral edge to the other. The subcutaneous tissues were irrigated, made hemostatic with the Bovie, and reapproximated with a running stitch of 30 Vicryl. The skin was reapproximated with 4-0 Vicryl. Estimated blood loss for the case was approximately 310 mL. All sponge instrument and needle counts are correct. There were no complications. The patient tolerated the procedure well and proceeded to the recovery room in stable condition. Both mother and infant are resting comfortably in recovery.
[2023-06-11] MEDS ORDERED: METOCLOPRAMIDE 5 MG/ML 2 ML VIAL IVP PRN (19:55)
[2023-06-11] MEDS ORDERED: diphenhydrAMINE 25 MG CAP PO PRN (19:55)
[2023-06-11] MEDS ORDERED: ONDANSETRON 4 MG/2 ML VIAL IVP PRN (19:55)
[2023-06-11] MEDS ORDERED: SIMETHICONE 80 MG CHEWABLE PO PRN (19:55)
[2023-06-11] MEDS ORDERED: diphenhydrAMINE 50 MG/ML 1 ML VIAL IVP PRN ×2 (19:55)
[2023-06-11] MEDS ORDERED: OXYTOCIN 30 UNITS/500 ML NS 30 UNIT in SALINE 1 500ML.BAG IV SCH (19:55)
[2023-06-11] MEDS ORDERED: NALOXONE 0.4 MG/ML 1 ML VIAL IV PRN (19:55)
[2023-06-11] MEDS ORDERED: ZOLPIDEM 5 MG TAB PO PRN (19:55)
[2023-06-11] MEDS ORDERED: diphenhydrAMINE 50 MG CAP PO PRN (19:55)
[2023-06-11] MEDS: LABETALOL 100 MG TAB PO SCH (20:24)
[2023-06-11] MEDS: SENNOSIDES-DOCUSATE SODIUM 1 EACH TAB PO SCH (20:32)
[2023-06-11] MEDS: ACETAMINOPHEN IV (For NPO) 1,000 MG in EMPTY BAG 1 BAG IVPB SCH (20:32)
[2023-06-11] MEDS: LACTATED RINGERS 1,000 ML IV SCH (20:32)
[2023-06-11] MEDS: ACETAMINOPHEN TAB 500 MG TAB PO SCH (23:23)
[2023-06-12] MEDS: IBUPROFEN IV 800 MG in SODIUM CHLORIDE 0.9% 250 ML IV PRN (01:33)
[2023-06-12] MEDS: IBUPROFEN 600 MG TAB PO SCH (01:37)
--- NOTE | 2023-06-12 08:03 | P.PN ---
Progress Note - Text 06/12/23 631am 32-year-old female status post spinal Duramorph. Patient seen and evaluated for postop pain control, she has a VAS of 3 with no complaints of nausea vomiting and minor pruritus
[2023-06-12] MEDS: PRENATAL VIT-IRON-FOLIC ACID 1 EACH TABLET PO SCH (08:14)
[2023-06-12 09:50] LABS: Basophils % (A) 0 %; Eosinophils # (A) 0.1 k/uL (0-0.7); Eosinophils % (A) 1 %; HCT 36.8 % (34.0-46.0); HGB 12.3 gm/dL (11.4-16.0); Lymphocytes # (A) 2.4 k/uL (1.0-4.8); Lymphocytes % (A) 19 %; MCH 31.6 pg (25.0-35.0); MCHC 33.4 g/dL (31.0-37.0); MCV 94.6 fL (80.0-100.0); Mean Platelet Volume 11.8; Monocytes # (A) 0.7 k/uL (0-1.0); Monocytes % (A) 6 %; Neutrophils # (A) 9.4 k/uL (1.3-7.7); Neutrophils % (A) 73 %; Platelet Count 165 k/uL (150-450); RBC 3.89 m/uL (3.80-5.40); WBC 12.8 k/uL (3.8-10.6)
[2023-06-13 11:48] LABS: HCT 35.6 % (34.0-46.0); MCH 32.4 pg (25.0-35.0); MCHC 33.7 g/dL (31.0-37.0); MCV 96.2 fL (80.0-100.0); Mean Platelet Volume 10.6; Platelet Count 174 k/uL (150-450); RDW 13.7 % (11.5-15.5); WBC 11.6 k/uL (3.8-10.6)
[2023-06-13 11:57] LABS: Uric Acid 5.6 mg/dL (3.7-7.4)
[2023-06-13 12:43] VITALS: RESP 16
--- NOTE | 2023-06-13 18:08 | P.PNOBGPC ---
Subjective - Subjective Principal diagnosis: Postop day 2, repeat section, preeclampsia Interval history: Patient is overall doing well. She is ambulating and voiding without difficulty. She is tolerating a regular diet without nausea or vomiting. She did have repeat preeclampsia labs with continued elevation of her liver function. BP have been normal Patient reports: Reports appetite normal, Reports voiding normally, Reports pain well controlled, Reports ambulating normally [place]: doing well Objective - Vital Signs Latest vital signs: Vital Signs Temp Pulse Resp BP Pulse Ox 06/13/23 15:23 16 06/13/23 12:15 97.4 F L 66 16 127/70 06/13/23 08:00 97.4 F L 70 17 108/69 06/13/23 00:00 79 16 111/70 98 06/12/23 21:00 120/70 Intake and Output 06/13/23 06/13/23 06/13/23 06:59 14:59 22:59 Intake Total 520 Balance 520 Intake: IV 520 Other: Voiding Method Toilet Indwelling Catheter # Voids 2 1 2 # Bowel Movements 1 - Exam Extremities: Present: normal, edema Abdomen: Present: normal appearance, soft Incision: Present: normal, dry, intact Uterus: Present: normal, firm - Labs Labs: Abnormal Lab Results - Last 24 Hours (Table) 06/13/23 06/13/23 Range/Units 10:44 10:44 WBC 11.6 H (3.8-10.6) k/uL RBC 3.70 L (3.80-5.40) m/uL AST 58 H (14-36) U/L ALT 35 H (4-34) U/L Assessment and Plan (1) 38 weeks gestation of Current Visit: Yes Status: Acute Code(s): Z3A.38 - 38 WEEKS GESTATION OF SNOMED Code(s): 62711728 (2) Chronic hypertension Current Visit: Yes Status: Acute Code(s): I10 - ESSENTIAL (PRIMARY) HYPERTENSION SNOMED Code(s): 23711443 (3) H/O section Current Visit: Yes Status: Acute Code(s): Z98.891 - HISTORY OF UTERINE SCAR FROM PREVIOUS SURGERY SNOMED Code(s): 055383713 (4) Pre-eclampsia Current Visit: Yes Status: Acute Code(s): O14.90 - UNSPECIFIED PRE- ECLAMPSIA, UNSPECIFIED TRIMESTER SNOMED Code(s): 302403124 (5) H/O: CVA (cerebrovascular accident) Current Visit: No Status: Acute Code(s): Z86.73 - PRSNL HX OF TIA (TIA), AND CEREB INFRC W/O RESID DEFICITS SNOMED Code(s): 775659967 Plan: Patient is doing well postoperatively. Given continued elevation of liver function test Plan to repeat labs in the morning and if decrease is noted will consider discharge.
--- NOTE | 2023-06-13 18:29 | P.MSEPDOC ---
Presenting Problems - Arrival Data Date of Arrival on Unit: 06/11/23 Time of Arrival on Unit: 16:45 Mode of Transport: Ambulatory - Complaint OB-Reason for Admission/Chief Complaint: PIH Medical History - Information : 2 Para: 1 Term: 1 : 0 Abortions: Spontaneous or Elective: 0 Number of Living Children: 1 - Gestational Age Gestational Age by MARCIA (wks/days): 39 Weeks and 1 Days Review of Systems - Review of Systems Constitutional: No problems Breast: No problems ENT: No problems Cardiovascular: No problems Respiratory: No problems Gastrointestinal: No problems Genitourinary: No problems Musculoskeletal: No problems Neurological: No problems Skin: No problems Vital Signs - Temperature Temperature: 97.4 F Temperature Source: Oral - Pulse Right Pulse Oximetery Pulse Rate: 66 Pulse Assessment Method: Automatic Cuff - Respirations Respiratory Rate: 16 - Blood Pressure Right Arm Blood Pressure: 127/70 Blood Pressure Mean: 89 Blood Pressure Source: Automatic Cuff Medical Screen Scoring - Assessment - Baby A Baseline FHR: 125 Heart Rate - NICHD Category: Category I (Normal) NST: Reactive Physician Notification - Physician Notified Physician Notified Date: 06/11/23 Physician Notified Time: 17:24 Physician: Irene Peña New Order Received: Yes (Pt admitted after labs back for delivery) Maternal Triage Index - Maternal Triage Index Presenting for scheduled procedure w/no complaint: No - Stat/Priority 1 Stat Priority 1: No - Urgent/Priority 2 Urgent Priority 2: No - Prompt/Priority 3 Prompt Priority 3: No - Non-Urgent/Priority 4 Non-Urgent Priority 4: Yes Criteria Met for Priority 4: Pt sent from office for [facility] workup. called with report following for lab results. - Scheduled/Requesting Priority 5 Scheduled/Requesting Priority 5: No Disposition - Disposition OB Disposition: Admit I agree with the RN Medical Screening Exam: Yes Case reviewed; plan agreed upon as documented in EMR&OBIX.: Yes Diagnosis: HEADACHE, UNSPECIFIED
[2023-06-14 06:57] LABS: Uric Acid 5.5 mg/dL (3.7-7.4)
[2023-06-14 08:28] VITALS: BP 111/64; PULSE 70; TEMP 98.2
--- NOTE | 2023-06-14 11:03 | P.DS ---
Providers Date of admission: 06/11/23 17:57 Expected date of discharge: 06/14/23 Attending physician: Irene Peña Primary care physician: Stated None - Discharge Diagnosis(es) (1) 38 weeks gestation of Current Visit: Yes Status: Acute (2) Chronic hypertension Current Visit: Yes Status: Acute (3) H/O section Current Visit: Yes Status: Acute (4) Pre-eclampsia Current Visit: Yes Status: Acute (5) H/O: CVA (cerebrovascular accident) Current Visit: No Status: Acute (6) S/P section Current Visit: No Status: Acute Hospital Course: 32-year-old G2, P2 that presented to labor and delivery on 06/10 after a routine visit. Patient had been receiving routine care complicated by hypertension. Patient had good control of her blood pressure with oral labetalol. Patient presented to her appointment stating she just did not feel right, headache unrelieved by Tylenol for the last 2 days. Patient was sent to OB triage on evaluation her liver function tests were noted to be elevated, headache remained. At this time patient was taken back for repeat section with bilateral salpingectomy for preeclampsia. Patient underwent C- section without difficulty. For full details on the please see the operative report. Patient's postoperative course has been essentially uneventful. Her liver enzymes did elevate on postoperative day #2 and on postoperative day 3 are normalizing. Patient states she is feeling well. She denies concerns. She states her headache has resolved. She is ambulating and voiding without difficulty. Her lochia is minimal to moderate. She is bottlefeeding. She denies concerns and would like discharge home. Patient Condition at Discharge: Good Plan - Discharge Summary New Discharge Prescriptions: No Action [id number] Acid [-U Capsule (formulary)] 1 cap PO DAILY Labetalol [Trandate] 100 mg PO BID Aspirin [Children's Aspirin] 81 mg PO DAILY Discharge Medication List [id number] Acid [-U Capsule (formulary)] 1 cap PO DAILY 04/08/19 [History] Aspirin [Children's Aspirin] 81 mg PO DAILY 10/17/19 [History] Labetalol [Trandate] 100 mg PO BID 10/17/19 [History] Follow up Appointment(s)/Referral(s): Irene Peña DO [Doctor of Osteopathic Medicine] - 1 Week Patient Instructions/Handouts: (DC), (GEN) Activity/Diet/Wound Care/Special Instructions: No intercourse, tampons or douching. No heavy lifting greater than a gallon of milk. No driving for two weeks. Call with any fever, shakes or chills, with any pain not alleviated by over the counter meds, or with any quesions or concerns. Discharge Disposition: HOME SELF-CARE
== END 2023-06-14 11:33 | disposition home or self-care (01) | DRG 785 ==
LOC: FBPOP 16:45 → 4FBP 17:57
PROVIDERS: ADMIT Obstetrics & Gynecology Obstetrics; ATTEND Obstetrics & Gynecology Obstetrics
PROC: 0UB70ZZ Excision of Bilateral Fallopian Tubes, Open Approach (ICD-10-PCS; 2023-06-11)
PROC: 10D00Z1 Extraction of Products of Conception, Low, Open Approach (ICD-10-PCS; principal; 2023-06-11 18:50)
DX: O14.94 Unspecified pre-eclampsia, complicating childbirth (principal); O34.211 Maternal care for low transverse scar from previous cesarean delivery; O16.4 Unspecified maternal hypertension, complicating childbirth; Z30.2 Encounter for sterilization; Z37.0 Single live birth; Z3A.38 38 weeks gestation of pregnancy; Z79.82 Long term (current) use of aspirin; Z86.73 Personal history of transient ischemic attack (TIA), and cerebral infarction without residual deficits; Z88.1 Allergy status to other antibiotic agents
CPT/HCPCS: 59025; 81001; 82565; 82570; 83615; 84156; 84450; 84460; 84520; 84550; 85025; 85027; 85610; 85730; 86850; 86900; 86901; 88302